=== PATIENT | female | born 1985 | race Caucasian/White ===

== ENCOUNTER 2018-08-31 18:02 | Outpatient (CLI) | END 2018-08-31 21:25 | disposition home or self-care (01) ==

== ENCOUNTER 2018-10-08 14:26 | Outpatient (CLI) | END 2018-10-08 16:50 | disposition home or self-care (01) ==

== ENCOUNTER 2018-10-09 17:25 | Outpatient (CLI) | END 2018-10-09 21:05 | disposition home or self-care (01) ==

== ENCOUNTER 2018-10-15 19:21 | Outpatient (CLI) | END 2018-10-16 00:10 | disposition home or self-care (01) ==

== ENCOUNTER 2018-10-18 21:00 | Outpatient (CLI) | END 2018-10-18 23:20 | disposition home or self-care (01) ==

== ENCOUNTER 2018-10-20 17:25 | Inpatient (IN) | END 2018-10-25 12:53 | disposition home or self-care (01) | DRG 788 ==